=== PATIENT | female | born 1995 | race African-American/Black ===

== ENCOUNTER 2016-05-27 00:59 | Emergency (ER) | payer BC ==
[~2016-05-27] VITALS: Ht 167.6 cm; Wt 61.2 kg
[2016-05-27 01:00] VITALS: BP 116/72
[2016-05-27] MEDS ORDERED: ACETAMINOPHEN ES 500 MG TABLET ONE (02:41)
[2016-05-27] MEDS ORDERED: IBUPROFEN 400 MG TABLET ONE (02:41)
[2016-05-27] MEDS ORDERED: ACETAMINOPHEN 325 MG TABLET PO ONE (03:00)
[2016-05-27] MEDS ORDERED: IBUPROFEN 400 MG TABLET PO ONE (03:00)
== END 2016-05-27 02:57 | disposition home or self-care (01) ==
LOC: ER 01:02
DX: S29.012A Strain of muscle and tendon of back wall of thorax, initial encounter (principal); V43.52XA Car driver injured in collision with other type car in traffic accident, initial encounter; Y93.89 Activity, other specified; Y92.89 Other specified places as the place of occurrence of the external cause; Y99.9 Unspecified external cause status
CPT/HCPCS: 99283; A4606; Z7610